=== PATIENT | male | born 1975 | race Caucasian/White ===

== ENCOUNTER 2017-08-29 10:49 | Emergency (ER) | payer OTHER ==
--- NOTE | 2017-08-29 11:05 | EDPHY ---
H & P Source: Patient Exam Limitations: No limitations Time Seen by Provider: 08/29/17 11:04 HPI/ROS: HPI: This is a 42-year-old male who presents with Chief Complaint: Fell off [employer], [employer] comp Location: Right hip Quality: Injury Duration: 1 hr prior to arrival Signs and Symptoms: No bleeding, no radiation, no numbness, no weakness, no tingling, no incontinence, no decreased range of motion, no swelling, + pain, no fever Timing: Acute Severity: [id number] Context: Patient was at the loading dock at work when he accidentally stepped off backwards approximately 5 ft and landed directly on his right side- primarily his right hip. He complains of discomfort in the right anterior thigh and groin area. He denies LOC/head injury/neck pain/dizziness/nausea/ vomiting/amnesia. He reports that he did not hit his head and was ambulatory at the scene. He complains of a small superficial abrasion to his right elbow. He is right-hand dominant. Denies any paresthesias/weakness/decreased range of motion. Patient believes he just may have strained his right groin. Patient unsure of tetanus status. 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 Using a walker from work to aid ambulation. Patient denies any back pain/ incontinence/change in bowel habits. He urinated without difficulty prior to coming to the emergency room. Modifying Factors: None Comment: ROS: see HPI Constitutional: No fever, no chills, no weight loss Eyes: No blurred vision Respiratory: No shortness of breath, no cough Cardiovascular: No chest pain Gastrointestinal: No nausea, no vomiting no diarrhea Genitourinary: No dysuria Extremities: No myalgias Neurologic: No weakness, no numbness Skin: No rashes Hematologic: No bruising, no bleeding MEDICAL/SURGICAL/SOCIAL HISTORY: Medical history: Generally healthy. Does not take any regular medications. Surgical history: Denies Social history: Employed. CONSTITUTIONAL: Polite and cooperative middle-aged white male, awake and alert , no obvious distress HEENT: Atraumatic and normocephalic, PERRL, EOMI. no globe entrapment, no raccoon eyes. no Holcomb signs.Tympanic membranes clear. No tympanic membrane rupture. Nares patent; no septal hematoma. Oropharynx clear, no exudate and moist pink mucosa. No malocclusion. no dental trauma. Airway patent. No lymphadenopathy. NECK: supple, no midline tenderness, flexion 45 degrees, extension 45 degrees, right and left lateral flexion 45 degrees. No meningismus. Cardiovascular: Normal S1/S2, regular rate, regular rhythm, without murmur rub or gallop. PULMONARY/CHEST: Symmetrical and nontender. no crepitus. Clear to auscultation bilaterally. Good air movement. No accessory muscle usage. ABDOMEN: Soft, nondistended, nontender, no ecchymosis, no rebound, no guarding , no peritoneal signs, no masses or organomegaly. No CVAT. PELVIC: no pain with rocking; bilateral hips flexion 125 degrees, extension 30 degrees, with no pain internal rotation and no pain external rotation. BACK: No midline tenderness, mild mid lumbar bilateral reproducible tenderness , no paraspinous spasm, deep tendon reflexes 2/2, no pain with straight leg raise EXTREMITIES: 2/2 pulses, right anterior thigh and right inguinal area and over right hip crease shows mild tenderness with palpation no deformities/swelling/ ecchymosis. Right HIP: Flexion to 125, extension to 115, hyper extension to 15, abduction to 45. No Pain with internal rotation and external rotation. tenderness over greater trochanter. Leg lengths are equal. Right ELBOW: Superficial abrasion noted over olecranon. Full extension to 180, flexion to 150, no tenderness over medial epicondyle, no tenderness over lateral epicondyle, no effusion. Right KNEE: no effusion, no medial and lateral joint line tenderness, full extension to 180, flexion to 120. No pain with varus and valgus exam. No pain with anterior drawer or posterior drawer test. no clubbing, no cyanosis or edema. NEUROLOGICAL: no focal neuro deficits. GCS 15. Ambulatory without deficits. SKIN: Warm and dry, no erythema. no rash. Good capillary refill. (Julian,Terra) Constitutional: Initial Vital Signs Temperature (C) 36.8 C 08/29/17 11:04 Heart Rate 78 08/29/17 11:04 Respiratory Rate 16 08/29/17 11:04 Blood Pressure 112/88 H 08/29/17 11:04 O2 Sat (%) 96 08/29/17 11:04 O2 Delivery Mode Room Air Allergies/Adverse Reactions: No Known Allergies Allergy (Unverified 08/29/17 11:03) Home Medications: Medication Instructions Recorded Cyclobenzaprine [Flexeril 10 MG 10 mg PO TID PRN #12 tab 08/29/17 (*)] oxyCODONE/APAP 5/325 [Percocet 1 - 2 tab PO Q4H PRN #10 tab 08/29/17 5/325 (*)] Medical Decision Making ED Course/Re-evaluation: Elbow cleaned with mild soap and water; bacitracin clean sterile dressing applied. Tetanus booster given. Right elbow x-ray, right hip x-ray, lumbar sacral x-ray, sacral coccyx x-rays ordered Patient reports currently that his pain is 2/10 and politely declined any pain medications. No signs of neurovascular compromise/tenting of skin/compartment syndrome/ extremities and joints examined above and below area of concern and are neurovascularly intact. No neurological deficits to warrant emergent MRI Ambulatory without any deficits. Patient reports that pain is controlled. Feels comfortable following outpatient. This patient was seen under the supervision of my secondary supervising physician. I evaluated care for this patient independently. (Chen Jordan) The patient was evaluated and managed by the physician assistant professor of biology. I have reviewed this chart and I agree with the findings and plan of care as documented , as indicated by my signature. I am the secondary supervising physician. ( Fernanda Steele) Differential Diagnosis: Differential diagnosis includes but is not limited to lumbar compression fracture, coccyx fracture, hip fracture, groin strain, musculoskeletal strain. (Chen Jodran) - Data Points Medications Given: Discontinued Medications Diphtheria/Tetanus/Acell Pertussis (Boostrix) 0.5 ml IM .ONCE ONE Stop: 08/29/17 12:01 Last Admin: 08/29/17 11:35 Dose: 0.5 ml Departure - Departure Disposition: Home, Routine, Self-Care Clinical Impression: Compression fracture of L5 lumbar vertebra, Accidental fall Condition: Good Instructions: Vertebral Compression Fracture (ED) Additional Instructions: Take Tylenol 650 mg every 4 hours and/or Ibuprofen 600 mg every 8 hours with food as needed for pain. Use Percocet every 6 hours as needed for severe/break through pain. Do not use Tylenol and Percocet concomitantly. Take Flexeril every 8 hr as needed for muscle spasm. Consume a minimum of 8-10 glasses of water or electrolyte fluid replacement drinks that include Gatorade, Powerade, Pedialyte. Take measures to make sure that you do not become constipated. No lifting greater than 10 lb and no mode the contact sports or moderate physical activity. You may walk daily. Follow-up with Neurosurgery in 5-7 days. Most likely they will repeat your lumbar sacral x-rays or obtain an MRI to gather further information. Return to the ER immediately if you have new or worsening back pain, fevers/ chills, flu like symptoms, incontinence or inability to urinate or defecate, weakness, paralysis, or any other symptom that concerns you. Follow-Up: Please follow-up as noted above. Follow-up sooner if your condition worsens or if you develop any new problems. Call as soon as possible for an appointment. Be clear when you call for an appointment that this is an Emergency Department follow-up. Contact the Emergency Department if you have trouble arranging follow-up care. Our referrals are not based on your insurance network. When time allows, contact your insurance carrier to verify the referral physician is in your plan. If not, get a referral for an [place] network architect. Referrals: Seth Pearson MD [Medical Doctor] - As per Instructions Stand Alone Forms: Work Excuse Prescriptions: Cyclobenzaprine [Flexeril 10 MG (*)] 10 mg PO TID PRN #12 tab PRN Reason: Spasms oxyCODONE/APAP 5/325 [Percocet 5/325 (*)] 1 - 2 tab PO Q4H PRN #10 tab PRN Reason: Pain, Severe
[2017-08-29] MEDS ORDERED: TDAP ADULT 0.5 ML INJ (BOOSTRIX) IM ONE ×2 (11:26→12:00)
[2017-08-29 13:12] VITALS: BP 109/69
== END 2017-08-29 13:12 | disposition home or self-care (01) ==
DX: S32.050A Wedge compression fracture of fifth lumbar vertebra, initial encounter for closed fracture (principal); Z23 Encounter for immunization; W17.89XA Other fall from one level to another, initial encounter; Y92.69 Other specified industrial and construction area as the place of occurrence of the external cause; Y99.0 Civilian activity done for income or pay; Y93.89 Activity, other specified